=== PATIENT | male | born 1960 | race Two or more races ===

== ENCOUNTER → 2019-12-13 | Day surgery (SDC) | payer BC ==
[2019-12-13] VITALS (8 sets, daily range): BP systolic 118–130; BP diastolic 60–97
[~2019-12-13] VITALS: Ht 188 cm; Wt 89.4 kg
[~2019-12-13] MED LIST: Atropine Sulfate 0.4mg/ml inj IVP PRN; DiphenhydrAMINE 50mg/ml Inj IVP PRN; HYDROcodone/Acetamin 5/325 tab ORAL PRN; HYDROcodone/Acetamin 7.5/325 tab ORAL PRN; Hydromorphone 0.5mg/0.5ml inj IVP PRN; Ketorolac 30mg Inj IV PRN; LORazepam Inj 2mg/ml 1ml IV PRN; LR 1000ml 1,000 ML IVLG SCH; LR 1000ml ONE; Labetalol 5mg/ml 20ml vial IV PRN; Lidocaine 1% MPF 10mg/ml 5ml ONE; Meperidine 25mg/1ml Inj (FOR RIGORS ONLY) IV PRN; Metoclopramide 10mg/2ml Inj IVP PRN; Midazolam 2mg/2ml Inj IVP PRN; fentaNYL 100 mcg/2 mL IV PRN; oxyCODONE HCL/Acetaminophen 5/325mg ORAL PRN
--- NOTE | 2019-12-13 10:03 | Anethesia Preoperative Eval ---
Anesthesia Pre-op PMH/ROS General Date of Evaluation: Dec 13, 2019 Time of Evaluation: 10:25 Anesthesiologist: Elie ASA Score: ASA 2 Mallampati Score Class I : Soft palate, uvula, fauces, pillars visible Class II: Soft palate, uvula, fauces visible Class III: Soft palate, base of uvula visible Class IV: Only hard plate visible Mallampati Classification: Class II Surgeon: Torsten Diagnosis: Abd Pain Surgical Procedure: EGD/Colonoscopy Anesthesia History: none Family History: no anesthesia problems Allergies: Coded Allergies: Kiwi (Verified Allergy, Intermediate, itching in mouth, 12/13/19) Medications: see eMAR Patient NPO?: Yes Past Medical History Gastrointestinal/Genitourinary: Reports: GERD, other - GI Bleed Anesthesia Pre-op Phys. Exam Physician Exam Last Vital Signs Date Time Temp Pulse Resp B/P (MAP) Pulse Ox O2 Delivery O2 Flow Rate FiO2 12/13/19 09:00 97.2 65 18 128/87 99 Room Air Constitutional: NAD Neurologic: CN 2-12 intact Cardiovascular: RRR Respiratory: CTA Gastrointestinal: S/NT/ND Airway Exam Mallampati Score: Class II MO: full ROM: limited Teeth: missing, intact Anesthesia Pre-op A/P Risk Assessment & Plan Assessment: ASA 2 Plan: TIVA Status Change Before Surgery: Steve Girard MD Dec 13, 2019 10:03
--- NOTE | 2019-12-13 10:04 | Immediate Post-Op Evaluation ---
Immediate Post-Op Evalulation Immediate Post-Op Evalulation Procedure: EGD/Colonoscopy Date of Evaluation: Dec 13, 2019 Time of Evaluation: 11:32 IV Fluids: 300 LR Blood Products: 0 Estimated Blood Loss: 1 Urinary Output: 0 Blood Pressure Systolic: 118 Blood Pressure Diastolic: 93 Pulse Rate: 64 Respiratory Rate: 16 O2 Sat by Pulse Oximetry: 100 Temperature (Fahrenheit): 98.6 Pain Score (1-10): 1 Nausea: No Vomiting: No Complications 0 Patient Status: awake, reacts, patent, none Hydration Status: adequate Steve Delgadillo MD Dec 13, 2019 10:04
--- NOTE | 2019-12-13 10:05 | 48 Hour Post Anesthesia Eval ---
Post Anesthesia Evaluation Procedure: EGD/Colonoscopy Date of Evaluation: Dec 13, 2019 Time of Evaluation: 13:43 Blood Pressure Systolic: 132 0: 89 Pulse Rate: 64 Respiratory Rate: 18 Temperature (Fahrenheit): 98.6 O2 Sat by Pulse Oximetry: 100 Airway: patent Nausea: No Vomiting: No Pain Intensity: 1 Hydration Status: adequate Cardiopulmonary Status: Stable Mental Status/LOC: patient returned to baseline Follow-up Care/Observations: 0 Post-Anesthesia Complications: 0 Follow-up care needed: ready to discharge Steve Delgadillo MD Dec 13, 2019 10:05
--- NOTE | 2019-12-13 10:21 | Pre-Procedure Note/Attestation ---
Pre-Procedure Note/Attestation Complete Prior to Procedure Planned Procedure: not applicable Procedure Narrative: esophagogastroduodenoscopy colon Indications for Procedure Pre-Operative Diagnosis: abd pain h/o polyps Attestation I attest that I discussed the nature of the procedure; its benefits; risks and complications; and alternatives (and the risks and benefits of such alternatives), prior to the procedure, with the patient (or the patient's legal entry level marketing representative). I attest that, if there was a reasonable possibility of needing a blood transfusion, the patient (or the patient's legal entry level marketing representative) was given the [facility] standardized written summary, pursuant to the [place] Blood Safety Act ([place] Health and Safety Code # 1645, as amended). I attest that I re-evaluated the patient just prior to the surgery and that there has been no change in the patient's H&P, except as documented below: Vinicius Sarmiento MD Dec 13, 2019 10:21
--- NOTE | 2019-12-13 10:21 | Short Stay Surgery H&P ---
History of Present Illness History of Present Illness Chief Complaint abd pain history of polyps HPI Bello Marcos is a 59 year old male who was admitted on for Abdominal Pain, Colon Polyps Patient History Allergies: Coded Allergies: Kiwi (Verified Allergy, Intermediate, itching in mouth, 12/13/19) Physical Exam Vital Signs Last Vital Signs Date Time Temp Pulse Resp B/P (MAP) Pulse Ox O2 Delivery O2 Flow Rate FiO2 12/13/19 09:00 97.2 65 18 128/87 99 Room Air Plan Attestation Are the patient's medical conditions optimized for surgery? Vinicius Sarmiento MD Dec 13, 2019 10:21
--- NOTE | 2019-12-13 11:23 | Endoscopy Procedure Note ---
Endoscopy Procedure Note General Indication for Procedure: abd marlon, h/o polyps Procedures Performed: EGD, colonoscopy Operative Findings/Diagnosis: polyps Specimen: yes Pt Tolerated Procedure Well: Yes Estimated Blood Loss: none Anesthesia Anesthesiologist: Stan Anesthesia: MAC Medications Medication Given: see anesthesia record Inserted Devices Implant(s) used?: No GI Core Measures 50 yrs or older w/o bx or poly: Not Applicable 10yrs. F/U recommended: Not Applicable Vinicius Sarmiento MD Dec 13, 2019 11:23
--- NOTE | 2019-12-13 11:24 | Brief Operative Note ---
Immediate Post Operative Note Operative Note Chief Complaint: pain h/o polyp Pre-op Diagnosis: abd pain h/o polyps Procedure: esophagogastroduodenoscopy colon Post-op Diagnosis: Polyps Specimen: yes Complications: none Condition: stable Fluids: Per Anesth Implant(s) used?: No Vinicius Sarmiento MD Dec 13, 2019 11:23
--- NOTE | 2019-12-14 01:00 | Operative Note - Dictated ---
DATE OF OPERATION: 12/13/2019 PROCEDURE: Upper gastrointestinal endoscopy with biopsy as well as colonoscopy with biopsy and hot snare polypectomy. SURGEON: Vinicius Sarmiento M.D. ANESTHESIA: Please see the separate anesthesiologist notes for details. PRE-ENDOSCOPIC DIAGNOSES: 1. Abdominal pain. 2. History of colonic polyps. POST-ENDOSCOPIC DIAGNOSES: 1. 5 mm gastric ulcer in the antrum, status post biopsy. 2. Status post random biopsies of the duodenum. 3. Diminutive polyps in the colon at the ascending portions, descending portion and sigmoid portions, status post biopsy removal. 4. 1 cm pedunculated polyp in the transverse colon, status post hot snare polypectomy. 5. Hemorrhoids. PROCEDURE: The procedure, its risks, indications, alternatives, and possible complications were explained to the patient and informed consent was obtained. The patient was then sedated in the left lateral decubitus position. A diagnostic upper endoscope was introduced through the oropharynx and advanced to the duodenum. The endoscope was then removed. The colonoscope was introduced in the rectum and advanced to cecum. The colonoscope was then removed. The mucosa examined carefully. Findings and treatments were as listed above. Retroflexed view of the rectum revealed . The colonoscope was removed and the patient was sent to recovery in good condition. COMPLICATIONS: None. RECOMMENDATIONS: 1. Follow up biopsy results. 2. Check and treat Helicobacter pylori if positive. 3. Alpha blockade. 4. Outpatient followup. Vinicius Sarmiento M.D. DR: THERESE JOB#: [id number] CC: Kevin Pena M.D.; Fax#: [phone]
== END | disposition home or self-care (01) ==
LOC: GAS 08:34
DX: R10.9 Unspecified abdominal pain (principal); K29.70 Gastritis, unspecified, without bleeding; B96.81 Helicobacter pylori [H. pylori] as the cause of diseases classified elsewhere; D12.3 Benign neoplasm of transverse colon; K25.9 Gastric ulcer, unspecified as acute or chronic, without hemorrhage or perforation; K63.5 Polyp of colon; K64.9 Unspecified hemorrhoids; Z86.010 Personal history of colon polyps; K21.9 Gastro-esophageal reflux disease without esophagitis; Z91.018 Allergy to other foods
CPT/HCPCS: 43239; 45380; 45385; 94003; J2704; J7120; U0002; 94150